=== PATIENT | female | born 1930 | race Caucasian/White ===

== ENCOUNTER → 2017-06-13 | Day surgery (SDC) | payer MEDICARE, OTHER ==
[~2017-06-13] MED LIST: Glycopyrrolate 0.2 MG/ML SDV IVPUSH ONE; Lactated Ringers 1,000 ML IV SCH; Propofol 200 MG/20 ML SDV IV ONE
[2017-06-13 08:38] VITALS: BP 140/49
--- NOTE | 2017-06-13 10:08 | OR ---
DATE OF OPERATION: 06/13/2017 PREOPERATIVE DIAGNOSIS: GASTROESOPHAGEAL REFLUX DISEASE. POSTOPERATIVE DIAGNOSIS: GASTROESOPHAGEAL REFLUX DISEASE. SURGEON: Jomar Kaba MD PROCEDURE: EGD WITH JOLLY. ANESTHESIA: [employer] due to advanced age and chronic GERD. COMPLICATIONS: None. SPECIMEN: Antral JOLLY. FINDINGS: 1. Full-length EGD. 2. Small hiatal hernia with spontaneous reflux, no esophagitis, stricturing, ulceration, or Javier's changes. RECOMMENDATIONS: Medical followup with Dr. Salgado. INDICATIONS: Ms. Pat has been having some persistent reflux symptoms. Dr. Salgado sent her for EGD. DESCRIPTION OF PROCEDURE: The patient was prepped and draped, placed in the left lateral decubitus position. A lubricated Olympus gastroscope was inserted and advanced to the cricopharyngeus area, and easily intubated in the esophagus. Esophageal lining was benign in its entire course. The Z-line was crisp and sharp at 38 cm. There was a very small hiatal hernia present with minimal spontaneous reflux seen. There was no distal esophagitis, stricturing, ulceration, or Javier's changes. The scope was easily passed into the stomach through the pylorus into the second portion of the duodenum. This and the duodenal bulb were benign. The scope was brought back into the stomach and retroflexed. The upper fundus and cardia were unremarkable. Upon straightening and thorough evaluation, the rest of the fundus and antrum was accomplished. There were no polyps, masses, ulcerations, bleeding sites. No signs of any gastritis. A CLOtest was obtained. Air was suctioned. The scope was removed without complication. MARIANGEL/DIANNE /[id number]
== END ==
LOC: CC.SDS 06:09
PROVIDERS: ATTEND Family Medicine
DX: K44.9 Diaphragmatic hernia without obstruction or gangrene (principal)
CPT/HCPCS: 43239; 87081; J7120; 00740; J2704